=== PATIENT | female | born 1990 | race Two or more races ===

== ENCOUNTER → 2020-10-26 | Outpatient (CLI) | payer BC ==
[2020-10-26 12:21] LABS: Basophils # (auto) 0 10 ^3/uL (0-0.2); Basophils % (auto) 0.5 % (0.0-2.0); Eosinophils # (auto) 0.1 10 ^3/uL (0-0.8); Eosinophils % (auto) 1.4 % (0.0-7.0); Hematocrit 40.1 % (36.0-46.0); Hemoglobin 13.5 g/dL (12.2-16.2); Lymphocytes # (auto) 1.9 10 ^3/uL (0.4-5.4); Lymphocytes % (auto) 29.4 % (10.0-50.0); Mean Corpuscular Hgb Conc. 33.8 g/dL (32.0-36.0); Mean Corpuscular Volume 88.9 fL (80.0-100.0); Monocytes # (auto) 0.4 10 ^3/uL (0-1.3); Monocytes % (auto) 6.6 % (0.0-12.0); Neutrophils % (auto) 62.1 % (37.0-80.0); Platelet Count (auto) 305 10^3/uL (140-450); Red Blood Cells 4.51 10^6/uL (4.0-5.20); White Blood Cell 6.5 10^3/uL (4.4-10.8)
[2020-10-26 12:24] LABS: Urine Bacteria FEW /hpf (None Seen); Urine Blood Negative /uL (Negative); Urine Mucus MODERATE (None Seen); Urine Specific Gravity 1.027 (1.001-1.035); Urine WBC 2 /hpf (0 - 5)
[2020-10-26 12:55] LABS: Albumin 3.8 g/dL (3.4-5.0); Calcium 9.1 mg/dL (8.5-10.1); Potassium 4.5 mmol/L (3.5-5.1)
[2020-10-26 13:01] LABS: BUN/Creatinine Ratio 12.9; Bilirubin, Total 0.5 mg/dL (0.2-1.0); Total Protein 8.1 g/dL (6.4-8.2)
== END | disposition home or self-care (01) ==
LOC: LAB 12:07
PROVIDERS: ATTEND Internal Medicine Nephrology
DX: G43.909 Migraine, unspecified, not intractable, without status migrainosus (principal); R35.0 Frequency of micturition
CPT/HCPCS: 36415; 80053; 80061; 81001; 83036; 84439; 84443; 85025

== ENCOUNTER → 2020-12-19 | Outpatient (CLI) | payer BC ==
[2020-12-19 15:02] LABS: Free T3 2.98 pg/mL (2.3-4.2); Free T4 (Free Thyroxine) 1.05 ng/dL (0.89-1.76); T3 Total 0.96 ng/mL (0.60-1.81)
== END | disposition home or self-care (01) ==
LOC: LAB 13:46
PROVIDERS: ATTEND Internal Medicine Nephrology
DX: E03.9 Hypothyroidism, unspecified (principal); G43.909 Migraine, unspecified, not intractable, without status migrainosus
CPT/HCPCS: 36415; 84439; 84443; 84480; 84481

== ENCOUNTER → 2021-02-14 | Outpatient (CLI) | payer BC ==
[2021-02-14 14:49] LABS: Urine Bacteria FEW /hpf (None Seen); Urine Blood Negative /uL (Negative); Urine Mucus FEW (None Seen); Urine Specific Gravity 1.036 (1.001-1.035); Urine WBC 2 /hpf (0 - 5)
== END | disposition home or self-care (01) ==
LOC: LAB 14:20
PROVIDERS: ATTEND Urology
DX: R35.0 Frequency of micturition (principal)
CPT/HCPCS: 81001; 87086